=== PATIENT | female | born 1995 | race Caucasian/White ===

== ENCOUNTER 2024-10-07 15:28 | Outpatient (CLI) | payer OTHER, SELFPAY ==
[2024-10-07 14:28] LABS: Hemoglobin A1C 5.1 % (<5.7)
[2024-10-07 14:57] LABS: TSH 0.76 uIU/mL (0.36-3.74)
[2024-10-07 22:01] LABS: T4, Free 0.9 ng/dL (0.8-2.2)
[2024-10-07 22:54] LABS: FSH 5.7 mIU/mL (See Note); LH 7.4 mIU/mL (See Note)
[2024-10-10 10:06] LABS: DHEA Sulfate 146 ug/dL (96-512)
[2024-10-15 14:30] LABS: Testosterone, Free 0.37 ng/dL (<0.13-1.03); Testosterone, Total 23 ng/dL (8-60)
== END 2024-10-07 15:29 | disposition home or self-care (01) ==
LOC: LBO 15:33
PROVIDERS: PCP Family Medicine; Visit Provider Obstetrics & Gynecology
DX: Z31.69 Encounter for other general counseling and advice on procreation (principal)
CPT/HCPCS: 36415; 82627; 84402; 84403; 83001; 83002; 83036; 84439; 84443